=== PATIENT | male | born 1990 | race Hispanic/Latino ===

== ENCOUNTER 2020-12-28 11:52 | Emergency (ER) | payer SELFPAY ==
[2020-12-28 12:57] LABS: Absolute Lymphocytes (CBC) 0.8 K/uL (0.7-4.9); Basophils % 0.2 % (0-1.3); Hematocrit 47.4 % (39.6-49.0); Lymphocytes % 7.8 % (15.3-44.8); MPV 9.3 fL (7.6-11.3); RBC Red Blood Cell Count 5.17 M/uL (4.33-5.43)
[2020-12-28 13:16] LABS: ALT/SGPT 266 U/L (12-78); AST/SGOT 289 U/L (15-37); Albumin 4.8 g/dL (3.4-5.0); Alkaline Phosphatase 101 U/L (45-117); BUN Blood Urea Nitrogen 17 mg/dL (7-18); Bicarbonate 30 mmol/L (21-32); Bilirubin Direct 0.4 mg/dL (0-0.2); Glucose Level 121 mg/dL (74-106); Lipase 707 U/L (73-393); Potassium 3.7 mmol/L (3.5-5.1); Protein, Total 9.5 g/dL (6.4-8.2); Sodium Level 135 mmol/L (136-145)
--- NOTE | 2020-12-28 13:26 | RAD REPORT ---
EXAM DESCRIPTION: US - Abdomen Exam Limited - 12/28/2020 12:36 pm CLINICAL HISTORY: ABD PAIN COMPARISON: No comparisons FINDINGS: The gallbladder demonstrates no gallstones. No pericholecystic fluid or gallbladder wall t hickening. The common bile duct is normal measuring 3 mm. The liver demonstrates no findings of intrahepatic biliary dilatation. IMPRESSION: Unremarkable examination.
[2020-12-28] MEDS ORDERED: KETOROLAC 30 MG/ML INJ ONE (13:50)
--- NOTE | 2020-12-28 14:13 | RAD REPORT ---
EXAM DESCRIPTION: CTAbdomen Pelvis W Contrast - 12/28/2020 1:50 pm CLINICAL HISTORY: Abdominal pain. ABD PAIN COMPARISON: No comparisons TECHNIQUE: Biphasic CT imaging of the abdomen and pelvis was performed with 100 ml non-ionic IV cont rast. All CT scans are performed using dose optimization technique as appropriate and may include automated exposure control or mA/KV adjustment according to patient size. FINDINGS: The lung bases are clear. The liver demonstrates a diffuse fatty infiltration. The spleen, pancreas, adrenal glands and kidneys are within normal limits. No bowel obstruction, free air, free fluid or abscess. The appendix is normal. No evidence of signi ficant lymphadenopathy. No suspicious bony findings. IMPRESSION: Prominent diffuse fatty liver is present.
--- NOTE | 2020-12-28 14:22 | EDPHYS ---
Physician Documentation [facility] Name: Helder Figueroa Age: 30 yrs Sex: Male : 1990 Arrival Date: 12/28/2020 Time: 11:54 Bed 18 Private MD: [place] Physician Umesh Cantor HPI: 12/28 14:18 This 30 yrs old Male presents to ER via Ambulatory with complaints of kb Abdominal Pain. 14:18 The patient presents with abdominal pain in the upper abdomen. The patient has not kb experienced similar symptoms in the past. The patient has not recently seen a physician. 14:19 Onset: The symptoms/episode began/occurred 2 day(s) ago. Associated signs and symptoms: kb none. Modifying factors: The symptoms are alleviated by nothing, the symptoms are aggravated by nothing. Severity of pain: At its worst the pain was moderate in the emergency department the pain is unchanged. 14:20 The symptoms do not radiate. The symptoms are described as constant. Pt reports upper kb abdominal pain and diarrhea for 2 days. States he had similar symptoms in the past and it went away on it's own, but it hasn't this time. . Historical: - Allergies: 12:08 No Known Allergies; ap3 - Home Meds: 12:08 None [Active]; ap3 - PMHx: 12:08 None; ap3 - Immunization history:: Adult Immunizations up to date, Client reports having NOT received the Covid vaccine. - Social history:: Smoking status: Patient reports the use of cigarette tobacco products, about 2-3/day, Patient uses alcohol, occasionally. ROS: 14:16 Constitutional: Negative for fever, chills, and weight loss. kb 14:16 Abdomen/GI: Positive for abdominal pain, Negative for nausea, vomiting, and diarrhea. 14:16 All other systems are negative. Exam: 14:16 Constitutional: This is a well developed, well nourished patient who is awake, alert, kb and in no acute distress. Head/Face: Normocephalic, atraumatic. ENT: Moist Mucous membranes Respiratory: Respirations even and unlabored. No increased work of breathing, no retractions or nasal flaring. Skin: Warm, dry with normal turgor. Normal color. MS/ Extremity: Pulses equal, no cyanosis. Neurovascular intact. Full, normal range of motion. Neuro: Awake and alert, GCS 15, oriented to person, place, time, and situation. Moves all extremities. Normal gait. Psych: Awake, alert, with orientation to person, place and time. Behavior, mood, and affect are within normal limits. 14:16 Abdomen/GI: Inspection: abdomen appears normal, Bowel sounds: normal, in all quadrants, Palpation: soft, in all quadrants, mild abdominal tenderness, in the right upper quadrant and left upper quadrant. Vital Signs: 12:04 BP 134 / 93 RA (auto/lg); Pulse 64; Resp 19; Temp 97; Pulse Ox 100% on R/A; ap3 12:04 Weight 79.38 kg; Height 5 ft. 8 in. (172.72 cm); ap3 13:34 BP 143 / 94; Pulse 86; Resp 16; Pulse Ox 98% ; tc5 14:31 BP 137 / 91; Pulse 80; Resp 16; Pulse Ox 99% ; tc5 12:04 Body Mass Index 26.61 (79.38 kg, 172.72 cm) ap3 MDM: 12:07 Patient medically screened. kb 14:15 Data reviewed: vital signs, nurses notes. Data interpreted: Pulse oximetry: on room air kb is 98 %. Interpretation: normal. 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 12/28 12:07 Order name: Basic Metabolic Panel; Complete Time: 13:17 kb 12/28 12:07 Order name: CBC with Diff; Complete Time: 13:04 kb 12/28 12:07 Order name: Hepatic Function; Complete Time: 13:17 kb 12/28 12:07 Order name: Lipase; Complete Time: 13:17 kb 12/28 12:07 Order name: US Abdomen Limited; Complete Time: 13:28 kb 12/28 13:28 Order name: CT Abd/Pelvis - IV Contrast Only; Complete Time: 14:14 kb 12/28 12:07 Order name: IV Saline Lock; Complete Time: 12:52 kb 12/28 12:07 Order name: Labs collected and sent; Complete Time: 12:52 kb Administered Medications: 13:29 Drug: Ketorolac 15 mg Route: IVP; Site: right antecubital; tc5 Disposition: 12/29 13:08 Co-signature as Attending Physician, Umesh Cantor MD I agree with the assessment and vanna plan of care. Disposition Summary: 12/28/20 14:21 Discharge Ordered Location: Home kb Condition: Stable kb Diagnosis - Upper abdominal pain, unspecified kb Followup: kb - With: Emergency Department - When: As needed - Reason: Worsening of condition Followup: kb - With: Private Physician - When: 2 - 3 days - Reason: Recheck today's complaints, Continuance of care, Re-evaluation by your physician Discharge Instructions: - Discharge Summary Sheet kb - Abdominal Pain, Adult, [id number] kb Forms: - Medication Reconciliation Form kb - Thank You Letter kb - Antibiotic Education kb - Prescription Opioid Use kb Prescriptions: - Zofran 4 mg Oral Tablet - take 1 tablet by ORAL route every 6 hours As needed; 20 tablet; Refills: 0, kb Product Selection Permitted - dicyclomine 20 mg Oral Tablet - take 1 tablet by ORAL route 4 times per day As needed; 20 tablet; Refills: 0, kb Product Selection Permitted Signatures: Dispatcher [employer] Tyra Walsh, CUSTOMER DEVELOPMENT REPRESENTATIVE-C CUSTOMER DEVELOPMENT REPRESENTATIVE-Umesh Jin MD MD cha Prokisch, Amanda RN RN ap3 Dunia Salgado, RN RN tc5
--- NOTE | 2020-12-28 14:22 | ER ---
Nurse's Notes [facility] Name: Helder Figueroa Age: 30 yrs Sex: Male : 1990 Arrival Date: 12/28/2020 Time: 11:54 Bed 18 Private MD: Diagnosis: Upper abdominal pain, unspecified Presentation: 12/28 12:04 Chief complaint: Patient states: he has had pain in the upper stomach for 2 days. ap3 Patient states Diarrhea two days ago but has improved. Patient states this has happened before. Coronavirus screen: At this time, the client does not indicate any symptoms associated with coronavirus-19. Ebola Screen: No symptoms or risks identified at this time. Initial Sepsis Screen: Does the patient meet any 2 criteria? No. Patient's initial sepsis screen is negative. Does the patient have a suspected source of infection? No. Patient's initial sepsis screen is negative. Risk Assessment: Do you want to hurt yourself or someone else? Patient reports no desire to harm self or others. Onset of symptoms was December 26, 2020. 12:04 Method Of Arrival: Ambulatory ap3 12:04 Acuity: ADRIÁN 3 ap3 Triage Assessment: 12:09 General: Appears uncomfortable, Behavior is cooperative. Pain: Complains of pain in ap3 abdomen Pain currently is 8 out of 10 on a pain scale. GI: Reports diarrhea, since 12/26/2020. Historical: - Allergies: 12:08 No Known Allergies; ap3 - Home Meds: 12:08 None [Active]; ap3 - PMHx: 12:08 None; ap3 - Immunization history:: Adult Immunizations up to date, Client reports having NOT received the Covid vaccine. - Social history:: Smoking status: Patient reports the use of cigarette tobacco products, about 2-3/day, Patient uses alcohol, occasionally. Screenin:35 Abuse screen: Denies threats or abuse. Denies injuries from another. Nutritional tc5 screening: No deficits noted. Tuberculosis screening: No symptoms or risk factors identified. Fall Risk None identified. Assessment: 13:29 GI: Reports pt reports upper abd pain and diarrhea x 2 days, states the diarrhea is tc5 better now. 14:32 GI: Bowel sounds present X 4 quads. tc5 14:32 GI: Abd is soft X 4 quads Abdomen is tender to palpation. tc5 Vital Signs: 12:04 BP 134 / 93 RA (auto/lg); Pulse 64; Resp 19; Temp 97; Pulse Ox 100% on R/A; ap3 12:04 Weight 79.38 kg; Height 5 ft. 8 in. (172.72 cm); ap3 13:34 BP 143 / 94; Pulse 86; Resp 16; Pulse Ox 98% ; tc5 14:31 BP 137 / 91; Pulse 80; Resp 16; Pulse Ox 99% ; tc5 12:04 Body Mass Index 26.61 (79.38 kg, 172.72 cm) ap3 ED Course: 11:54 Patient arrived in ED. mr 11:55 Tyra Soto FNP-C [facility]. kb 11:55 Umesh Cantor MD is Attending Physician. kb 12:08 Triage completed. ap3 12:30 Dunia Salgado, RN is Primary Nurse. tc5 12:30 Arm band placed on Patient placed in an exam room, in an internal wait recliner. ll1 12:34 US Abdomen Limited In Process Unspecified. EDMS 12:52 Basic Metabolic Panel Sent. mh5 12:52 CBC with Diff Sent. mh5 12:53 Patient has correct armband on for positive identification. Placed in gown. Bed in low mh5 position. Call light in reach. Side rails up X 1. Pulse ox on. NIBP on. 12:53 Hepatic Function Sent. mh5 12:53 Lipase Sent. mh5 12:53 Initial lab(s) drawn, by pr, sent to lab. Inserted saline lock: 20 gauge in right mh5 antecubital area, using aseptic technique. Blood collected. 13:50 CT Abd/Pelvis - IV Contrast Only In Process Unspecified. EDMS 14:32 No provider procedures requiring assistance completed. tc5 14:32 IV discontinued, intact, bleeding controlled, No redness/swelling at site. Pressure tc5 dressing applied. Administered Medications: 13:29 Drug: Ketorolac 15 mg Route: IVP; Site: right antecubital; tc5 Outcome: 14:21 Discharge ordered by . kb 14:32 Discharged to home ambulatory. tc5 14:32 Condition: stable 14:32 Discharge instructions given to patient. 14:49 Patient left the ED. ap3 Signatures: Dispatcher [employer] EDMS Tyra Soto FNP-C TABLE CUT OFF SAW OPERATOR-Ckb Chip, Irene Craven, Orly 5 Angelica Jordan, RN RN ap3 Henri Pena, RN RN ll1 Dunia Salgado, RN RN tc5
[2020-12-28 15:03] VITALS: TEMP 97
[2020-12-28 15:05] VITALS: BP 137/91; O2SAT 99
== END 2020-12-28 14:49 | disposition home or self-care (01) ==
LOC: ER 11:52
DX: R10.10 Upper abdominal pain, unspecified (principal); Z72.0 Tobacco use
CPT/HCPCS: 36415; 74177; 76705; 80048; 80076; 83690; 85025; 96374; 99284; Q9967